=== PATIENT | male | born 2000 | race Caucasian/White ===

== ENCOUNTER 2019-06-05 09:24 | Emergency (ER) | payer OTHER, MEDICAID, SELFPAY ==
[2019-06-05] VITALS (14 sets, daily range): BP systolic 102–142; BP diastolic 61–77; PULSE 74–98; RESP 14–18; TEMP 36.9; O2SAT 96–100; BMI 19.3
--- NOTE | 2019-06-05 09:29 | ED.DCSUM_ITS ---
History of Present Illness Chief Complaint: Mental Health Informant: Patient, Housefellow Onset: Today Context: Sudden Onset Worsened by: Situational factors Associated Symptoms: Easily distracted. Negative for: Depressed, Change in Eating, Change in sleeping, Decreased Interest, Suicidal Thoughts, Visual Hallucinations, Auditory Hallucinations Narrative: Patient was arrested last night because there was methamphetamine found in a vehicle he was in but he states it was in his because if it was, it would be gone. He states he has used methamphetamine in the past but not recently. This led to an argument between his mom and him, he states his mom was yelling out him and paramedics confirm that as a result of this he drank a cup of bleach as a gesture. Within 4 seconds the patient states he vomited it back up, it had a streak of blood in it, but was not grossly bloody. He has not vomited since and denies any abdominal pain but his throat is sore now. He states otherwise he feels fine. He took no other pills, drugs, substances/chemicals. He states he is not suicidal, and did not intend to kill himself by doing this, he simply was trying to make his mom angry because he was upset with her. He apparently has a history of making unintelligent decisions spontaneously because he is upset. However -- patient tells nursing that although he was not trying to kill himself, he frequently has thoughts of it and if he ever does it, it will be quick so that my family does not know. Past Medical History - Allergies and Home Meds Allergies/Adverse Reactions: Allergies No Known Allergies Allergy (Verified 06/05/19 10:07) Primary Care Physician: Care Physician,No Primary [Primary Care Provider] - Past Medical History: None Lives: With Family Drugs: - - methamphetamine Review of Systems General: Denies: Chills, Fever, Sweats Eyes: Denies: Visual changes - bilaterally, Diplopia ENT: Reports: Sore throat. Denies: Rhinorrhea Cardiovascular: Denies: Chest pain, Palpitations Respiratory: Denies: Dyspnea, Cough, Dyspnea on exertion Gastrointestinal: Reports: Vomiting - w/ small amt blood. Denies: Abdominal pain, Diarrhea, Melena, Hematochezia Genitourinary: Denies: Dysuria, Hematuria, Frequency Musculoskeletal: Denies: Back pain, Extremity Pain Skin: Denies: Rash, Wounds Neurological: Denies: Headache, Weakness, Numbness Psych: Reports: Anxiety. Denies: Suicidal thoughts, Suicidal ideations Physical Exam Inital Vital Signs reviewed: Yes General: Well nourished, Well developed Head: Normocephalic, Atraumatic Eyes: Perrl, EOMI ENT: Moist mucous membranes, No rhinorrhea, - - posterior oropharyngeal erythema, no bleeding Neck: Supple, Nontender Cardiovascular: Regular rate, Regular rhythm, No murmurs Respiratory: No distress, CTA bilaterally, Chest nontender Abdomen: Soft, Nontender, Nondistended, Normal bowel sounds Back: Nontender, Normal Inspection Extremities: Nontender, No Edema Skin: Normal color, No rash, No Trauma Neurological: Alert, Oriented x3, Cranial nerves II-XII grossly intact, Normal Strength, Normal Sensation Psych: Normal Speech Pattern, Logical sequential goal directed thoughts, No suicidal or homicidal ideation, Normal Stable Appropriate Affect, Good Insight, Normal Appearance, Poor Judgement Diagnostic/Tx/Re-eval Laboratory Results 06/05/19 06/05/19 06/05/19 09:30 09:30 09:30 WBC 10.8 RBC 5.03 Hgb 15.3 Hct 45.3 MCV 90.1 MCH 30.4 MCHC 33.8 RDW Std Deviation 45.0 H RDW Coeff of Lorrie 13.7 Plt Count 334 MPV 9.8 Immature Gran % (Auto) 0.400 Neut % (Auto) 65.8 Lymph % (Auto) 22.8 [place] % (Auto) 9.8 Eos % (Auto) 1.0 Baso % (Auto) 0.2 Absolute Neuts (auto) 7.1 Absolute Lymphs (auto) 2.46 Absolute Nucleated RBC 0.00 Nucleated RBC % 0 Sodium 143 Potassium 4.1 Chloride 107 Carbon Dioxide 26.0 Anion Gap 10 BUN 18 Creatinine 1.16 Estim Creat Clear Calc 89.76 Est GFR (MDRD) Af Amer 102 Est GFR (MDRD) Non-Af 84 BUN/Creatinine Ratio 15.5 Glucose 79 Calcium 9.1 Urine Opiates Screen Urine Methadone Screen Ur Barbiturates Screen Ur Phencyclidine Scrn Ur Amphetamines Screen U Methamphetamin-MDMA U Benzodiazepines Scrn Urine Cocaine Screen U Cannabinoids Screen Ur Drug Screen Comment Ethyl Alcohol 5.0 06/05/19 09:40 WBC RBC Hgb Hct MCV MCH MCHC RDW Std Deviation RDW Coeff of Lorrie Plt Count MPV Immature Gran % (Auto) Neut % (Auto) Lymph % (Auto) [place] % (Auto) Eos % (Auto) Baso % (Auto) Absolute Neuts (auto) Absolute Lymphs (auto) Absolute Nucleated RBC Nucleated RBC % Sodium Potassium Chloride Carbon Dioxide Anion Gap BUN Creatinine Estim Creat Clear Calc Est GFR (MDRD) Af Amer Est GFR (MDRD) Non-Af BUN/Creatinine Ratio Glucose Calcium Urine Opiates Screen NEGATIVE Urine Methadone Screen NEGATIVE Ur Barbiturates Screen NEGATIVE Ur Phencyclidine Scrn NEGATIVE Ur Amphetamines Screen POSITIVE H U Methamphetamin-MDMA POSITIVE H U Benzodiazepines Scrn NEGATIVE Urine Cocaine Screen POSITIVE H U Cannabinoids Screen POSITIVE H Ur Drug Screen Comment Ethyl Alcohol Patient has been cooperative throughout his ED stay. His labs are normal except toxicology shows cocaine, methamphetamine in addition to the drugs that he admitted to. On confronting him with this, he states that he forgot to tell us, that he was doing methamphetamine and cocaine overnight. His alcohol is negative and he is not currently intoxicated, is cooperative and conversive. We had him drink plenty of water to help dilute any residual sodium hypochlorite; he felt better and asked for some food, he was given a tray and ate it without any difficulty. He is medically cleared for crisis evaluation for further risk stratification psychiatrically. Crisis evaluated and is in agreement with the above. Furthermore, the patient told crisis that earlier when he ingested bleach, it was more of a suicidal gesture, contrary to what he told us earlier. ED Disposition - Plan for ED Patient: Disposition: Psychiatric Hospital or Unit Diagnosis: Bleach ingestion, Suicidal ideation, Polysubstance abuse Referrals: Care Physician,No Primary [Primary Care Provider] -
[2019-06-05 09:40] LABS: Absolute Lymphocyte Count 2.46 X10^3/uL (0.83-4.51); Absolute Neutrophil Count 7.1 X10^3/uL (2.0-7.7); Basophil# 0.02 X10^3/uL; Basophil% 0.2 % (0-1); Eosinophil# 0.11 X10^3/uL; Hematocrit 45.3 % (40-54); Hemoglobin 15.3 g/dL (13.0-16.5); Lymphocyte # 2.46 X10^3/ul (4.0); Lymphocyte % 22.8 % (19-41); Mean Corp Hgb Conc 33.8 g/dL (32-36); Mean Corpuscular Hgb 30.4 pg (27.0-32.0); Mean Corpuscular Volume 90.1 fL (80-94); Mean Platelet Vol. 9.8 fl (6.2-12.0); Monocyte# 1.06 X10^3/uL; Monocyte% 9.8 % (0-10); NRBC Flagged by Analyzer 0 % (0-5); Neutrophil # 7.12 X10^3/uL (2.7-7.7); Neutrophil % 65.8 % (47-70); Platelet Count 334 K/mm3 (150-450); RBC Distribution Width CV 13.7 % (11.6-14.6); Red Blood Count 5.03 M/mm3 (4.6-6.2); White Blood Count 10.8 K/mm3 (4.4-11.0)
[2019-06-05 09:47] LABS: Anion Gap 10 (5-15); BUN 18 mg/dL (7-18); BUN/Creat Ratio 15.5 RATIO (10-20); Calcium,Total 9.1 mg/dL (8.5-10.1); Chloride 107 mmol/L (98-107); Creatinine, Serum 1.16 mg/dL (0.70-1.30); EST Glomerular Filtration Rate 84 mL/min (>60); Est Glom Filt Rate - Afr Amer 102 mL/min (>60); Estimated Creatinine Clearance 89.76 ml/min; Glucose 79 mg/dL (74-106); Potassium 4.1 mmol/L (3.5-5.1); Sodium Level 143 mmol/L (136-145)
--- NOTE | 2019-06-05 10:04 | CASEMGMT ---
Insurance: Continued stay clinicals faxed this day. Auth #[id number].
[2019-06-05 10:45] LABS: Amphetamine Urine VISTA POSITIVE (<1000 ng/mL); Barbiturate Urine VISTA NEGATIVE (< 200 ng/mL); Benzodiazepine Urine VISTA NEGATIVE (< 200 ng/mL); Cocaine Urine VISTA POSITIVE (< 300 ng/mL); Ecstacy Urine VISTA POSITIVE (< 500 ng/mL); Methadone Urine VISTA NEGATIVE (< 300 ng/mL); PCP Urine VISTA NEGATIVE (< 25 ng/mL); THC Urine VISTA POSITIVE (< 50 ng/mL); Vista UDS pH Range 5
--- NOTE | 2019-06-05 11:50 | ED.RN ---
crises contacted. states will call back. crises has not called back . secretary office clerk is contacting mental health again
--- NOTE | 2019-06-05 15:06 | ED.RN ---
Carlos A from crises here to see pt. pt remains cooperative and pleasant
--- NOTE | 2019-06-05 21:15 | NURSING ---
ACCEPTED TO [facility] BY DR. PEPE [phone] REPORT
--- NOTE | 2019-06-05 21:27 | ED.RN ---
SPOKE WITH CASTING AND LOCKER ROOM SERVICER AT [facility]. SHE STATES THE FLOOR NURSE GETTING THE PATIENT WOULD NEED TO CALL ME BACK IN THE NEXT 20 MINUTES BUT IT IS OKAY TO CALL AND ARRANGE FOR TRANSPORT FOR PATIENT. THIS RN GAVE INTAKE PERSONNEL ER DIRECT PHONE NUMBER AND TOLD TO ASK FOR [facility]
--- NOTE | 2019-06-05 21:47 | NURSING ---
CALLED [facility] AT 2128 COULDNT DO TRANSPORT TILL 6AM CALLED [facility] AT 2130 NO AVAILABILITY CALLED [facility] AT 2138 NO AVAILABILITY CALLED [facility] AT 2140 NO AVAILABILITY
[2019-06-06] VITALS (7 sets, daily range): BP systolic 117–121; BP diastolic 68–85; PULSE 66–67; RESP 14–16; O2SAT 100
[2019-06-06] MEDS: LORazepam 1 MG Tablet PO (00:03)
== END 2019-06-06 06:31 ==
PROVIDERS: Emergency Provider Emergency Medicine
DX: T54.92XA Toxic effect of unspecified corrosive substance, intentional self-harm, initial encounter (principal); F15.10 Other stimulant abuse, uncomplicated; F14.10 Cocaine abuse, uncomplicated
CPT/HCPCS: 80048; 80307; 80320; 85025; 99285; G0480

== ENCOUNTER → 2022-11-10 | Outpatient (CLI) | payer BC, MEDICAID, SELFPAY ==
[2022-11-10 12:22] LABS: Absolute Lymphocyte Count 1.91 X10^3/uL (0.83-4.51); Absolute Neutrophil Count 4.1 X10^3/uL (2.0-7.7); Basophil# 0.03 X10^3/uL; Basophil% 0.4 % (0-1); Eosinophil# 0.33 X10^3/uL; Eosinophils% 4.8 % (0-5); Hematocrit 44.8 % (40-54); Hemoglobin 15.1 g/dL (13.0-16.5); Lymphocyte # 1.91 X10^3/ul (0.83-4.51); Lymphocyte % 27.8 % (19-41); Mean Corp Hgb Conc 33.7 g/dL (32-36); Mean Corpuscular Hgb 30.5 pg (27.0-32.0); Mean Corpuscular Volume 90.5 fL (80-94); Mean Platelet Vol. 11.9 fl (6.2-12.0); Monocyte% 7.3 % (0-10); NRBC Flagged by Analyzer 0 % (0-5); Neutrophil # 4.08 X10^3/uL (2.7-7.7); Neutrophil % 59.6 % (47-70); Platelet Count 265 K/mm3 (150-450); RBC Distribution Width SD 42.7 fl (35.1-43.9); Red Blood Count 4.95 M/mm3 (4.6-6.2); White Blood Count 6.9 K/mm3 (4.4-11.0)
[2022-11-10 13:16] LABS: ALB/GLOB Ratio 1.5 RATIO (0.9-2.4); AST(SGOT) 16 U/L (15-37); Alanine Aminotransfer ALT/SGPT 31 U/L (16-61); Albumin, Serum 4.3 g/dL (3.2-5.0); Alkaline Phosphatase 61 U/L (45-117); Anion Gap 2 (5-15); BUN 15 mg/dL (7-18); BUN/Creat Ratio 16.7 RATIO (10-20); CRP < 2.90 mg/L (0.0-3.0); Calcium,Total 9.3 mg/dL (8.5-10.1); Chloride 110 mmol/L (98-107); EST Glomerular Filtration Rate 110 mL/min (>60); Est Glom Filt Rate - Afr Amer 133 mL/min (>60); Globulin 2.9 g/dL (2.2-4.2); Glucose 95 mg/dL (74-106); Potassium 4.1 mmol/L (3.5-5.1); Protein, Total 7.2 g/dL (6.4-8.2); Sodium Level 140 mmol/L (136-145); T4 Free Direct 0.91 ng/dL (0.76-1.46); Thyroid Stim Hormone (TSH) 0.65 uIU/mL (0.358-3.74)
[2022-11-10 13:30] LABS: HIV - WCH Non-Reactive (Nonreactive); Hepatitis C Antibody Non-Reactive (Nonreactive)
== END | disposition home or self-care (01) ==
PROVIDERS: Visit Provider Family Medicine
DX: R59.0 Localized enlarged lymph nodes (principal); R53.83 Other fatigue; R63.4 Abnormal weight loss; R61 Generalized hyperhidrosis
CPT/HCPCS: 36415; 80053; 84439; 84443; 85025; 86140; 86703; 86803